=== PATIENT | female | born 1955 | race Caucasian/White ===

== ENCOUNTER 2020-04-08 06:18 | Day surgery (SDC) | payer SELFPAY ==
[~2020-04-08 06:18] MED LIST: COQ10200 MG PO; PRIMROSE OI1 PO; VITAMINS & PO; [UNRECOGNIZED DRUG - OTHER] PA; [UNRECOGNIZED DRUG - OTHER] PO; [UNRECOGNIZED DRUG - OTHER] PO
[2020-04-08 09:08] VITALS: BP 118/67
== END 2020-04-08 09:25 | disposition home or self-care (01) | DRG 394 ==
LOC: ORM 06:18
PROVIDERS: ATTEND Surgery
PROC: 0DBH8ZX Excision of Cecum, Via Natural or Artificial Opening Endoscopic, Diagnostic (ICD-10-PCS; principal; 2020-04-08)
DX: K63.5 Polyp of colon (principal); Q43.9 Congenital malformation of intestine, unspecified; K64.8 Other hemorrhoids; Z11.59 Encounter for screening for other viral diseases